=== PATIENT | female | born 1975 | race Caucasian/White ===

== ENCOUNTER 2017-08-16 10:09 | Emergency (ER) | payer OTHER ==
[~2017-08-16] VITALS: Ht 162.6 cm; Wt 63.5 kg
[~2017-08-16 10:09] MED LIST: ATIVAN1 MG PO; FLEXERIL PO; IBUPROFEN 200200 M1 PO; NAPROSYN500 MG PO; NOHOMEMEDICATIONS; VICODIN 5-5001 EACH PO
[2017-08-16 10:16] VITALS: BP 139/73
[2017-08-16] MEDS ORDERED: ANTIVERT25 MG PO (10:47)
== END 2017-08-16 10:50 | disposition home or self-care (01) ==
LOC: ER 10:09
DX: R51 Headache (principal); R42 Dizziness and giddiness

== ENCOUNTER 2017-09-13 14:02 | Emergency (ER) | payer OTHER ==
[~2017-09-13] VITALS: Ht 162.6 cm; Wt 63.5 kg
[~2017-09-13 14:02] MED LIST changes: +ANTIVERT25 MG PO
[2017-09-13] MEDS ORDERED: IBUPROFEN 600600 M1 PO ×2 (14:32→14:44)
[2017-09-13] MEDS ORDERED: FLONASE 0.05%50 MCG NASAL ×2 (14:32→14:44)
[2017-09-13 14:39] VITALS: BP 121/81
== END 2017-09-13 14:51 | disposition home or self-care (01) ==
LOC: ER 14:02
DX: J02.9 Acute pharyngitis, unspecified (principal); J06.9 Acute upper respiratory infection, unspecified; H92.03 Otalgia, bilateral

== ENCOUNTER 2018-12-31 15:44 | Emergency (ER) | payer OTHER ==
[~2018-12-31] VITALS: Ht 162.6 cm; Wt 64.4 kg
[~2018-12-31 15:44] MED LIST changes: +FLONASE 0.05%50 MCG NASAL; +IBUPROFEN 600600 M1 PO
[2018-12-31 16:35] LABS: ABSOLUTE NEUTROPHILS 10.2 thou/uL (1.4-8.2); BASOPHILS 0.3 % (0.0-2.0); EOSINOPHILS 0.9 % (0.0-3.0); HEMATOCRIT 38.7 % (37.0-47.0); LYMPHOCYTES 11.8 % (24.0-44.0); MCH 29.6 pg (26.0-34.0); MCHC 33.4 g/dL (28.0-37.0); MCV 88.6 fL (80.0-100.0); MONOCYTES 4.6 % (1.0-8.0); PLATELET COUNT 213 thou/uL (150-400); POLYS 82.4 % (36.0-66.0); RBC 4.37 mil/uL (4.20-5.00); RDW 14.1 % (10.5-14.5); WBC 12.3 thou/uL (4.0-11.0)
[2018-12-31 16:41] LABS: CALCIUM 9.3 mg/dL (8.5-10.1); CREATININE 0.8 mg/dL (0.6-1.0); POTASSIUM 3.8 mmol/L (3.5-5.1)
[2018-12-31 16:48] LABS: ALBUMIN 4.1 g/dL (3.4-5.0); TOTAL BILIRUBIN 0.2 mg/dL (<0.1-1.0); TOTAL PROTEIN 7.8 g/dL (6.4-8.2)
[2018-12-31 17:03] LABS: URINE BILIRUBIN NEGATIVE (Negative); URINE BLOOD TRACE (Negative); URINE COLOR YELLOW; URINE GLUCOSE-RANDOM* NEGATIVE (Negative); URINE KETONES NEGATIVE (Negative); URINE LEUKOCYTES-REFLEX NEGATIVE (Negative); URINE NITRITE-REFLEX POSITIVE (Negative); URINE PROTEIN (DIPSTICK) NEGATIVE (Negative); URINE UROBILINOGEN 0.2 E.U./dl (0.2-1.0)
[2018-12-31 17:04] LABS: URINE CLARITY HAZY
[2018-12-31 17:21] LABS: SQUAMOUS 4-10 Moderate /LPF (0-3)
[2018-12-31 17:22] LABS: BACTERIA-REFLEX >30 Many /HPF (None Seen); CASTS None Seen /LPF (None Seen); CRYSTALS None Seen /LPF (None Seen); URINE RBC 0-2 Rare /HPF (0-2); URINE WBC-REFLEX 0-5 Rare /HPF (0-5)
[2018-12-31] MEDS ORDERED: CEFDINIR300 MG PO (17:25)
[2018-12-31] MEDS ORDERED: REGLAN 10 MG TA10 MG PO (17:26)
[2018-12-31] MEDS ORDERED: NAPROSYN500 MG PO (17:26)
[2018-12-31 17:42] VITALS: BP 123/66
--- NOTE | 2019-01-01 19:53 | EKG ---
[address] [address] ELECTROCARDIOGRAM REPORT Name: LEANNE ALCANTARA Room #: [facility]P [facility]Latrell#: [id number] ������������������ Admission: 12/31/18 ������������������ Attend Phys: Discharge: 12/31/18 ������������������ Date of : 75 Report #: [id number] ����������������������������������������������������������������� [id number] THIS REPORT FOR: //name// [facility] ED Test Date: 2018-12-31 Test Time: 16:10:13 Pat Name: LEANNE ALCANTARA Department: Room: Gender: F Boiler/Chiller Technician: temo : 1975 Requested By: Thompson Louis Order Number: [id number] MD: Jerry Bautista Measurements Intervals Sullivan Rate: 76 P: 44 MO: 124 QRS: 66 QRSD: 94 T: 38 QT: 389 QTc: 438 Interpretive Statements Sinus rhythm Compared to ECG 07/26/2014 18:33:40 No significant changes Electronically Signed On 01-01-2019 19:53:15 CDT by Jerry Bautista [email or web address] ��������������������������������������������� <ELECTRONICALLY SIGNED> ���������������������������������������� By: Jerry Bautista MD ��������������������������������������������� 01/01/191952 09 09 Jerry Bautista MD /SPECNER
== END 2018-12-31 18:18 | disposition home or self-care (01) ==
LOC: ER 15:44
PROVIDERS: Emergency Medicine
DX: G43.809 Other migraine, not intractable, without status migrainosus (principal); N39.0 Urinary tract infection, site not specified

== ENCOUNTER 2019-07-13 15:09 | Emergency (ER) | payer OTHER ==
[~2019-07-13] VITALS: Ht 162.6 cm; Wt 68.0 kg
[~2019-07-13 15:09] MED LIST changes: +CEFDINIR300 MG PO; +REGLAN 10 MG TA10 MG PO
[2019-07-13 15:32] LABS: URINE BILIRUBIN NEGATIVE (Negative); URINE BLOOD 1+ (Negative); URINE CLARITY CLEAR; URINE COLOR YELLOW; URINE GLUCOSE-RANDOM* NEGATIVE (Negative); URINE KETONES NEGATIVE (Negative); URINE LEUKOCYTES-REFLEX NEGATIVE (Negative); URINE NITRITE-REFLEX NEGATIVE (Negative); URINE PROTEIN (DIPSTICK) NEGATIVE (Negative); URINE SPECIFIC GRAVITY >= 1.030 (1.005-1.035); URINE UROBILINOGEN 0.2 E.U./dl (0.2-1.0)
[2019-07-13 15:41] LABS: CASTS None Seen /LPF (None Seen); MUCUS 0-3 Light strn/LPF (None Seen); SQUAMOUS 0-3 Few /LPF (0-3)
[2019-07-13 15:42] LABS: BACTERIA-REFLEX 1-9 Few /HPF (None Seen); CRYSTALS None Seen /LPF (None Seen); URINE RBC 0-2 Rare /HPF (0-2); URINE WBC-REFLEX None Seen /HPF (0-5)
[2019-07-13 16:15] LABS: ABSOLUTE NEUTROPHILS 11.8 thou/uL (1.4-8.2); BASOPHILS 0.3 % (0.0-2.0); EOSINOPHILS 0.2 % (0.0-3.0); HEMATOCRIT 37.5 % (37.0-47.0); HEMOGLOBIN 12.2 gm/dL (12.0-15.0); LYMPHOCYTES 2.7 % (24.0-44.0); MCHC 32.6 g/dL (28.0-37.0); MCV 88.9 fL (80.0-100.0); MONOCYTES 4.1 % (1.0-8.0); POLYS 92.7 % (36.0-66.0); RBC 4.21 mil/uL (4.20-5.00); RDW 14.3 % (10.5-14.5); WBC 12.7 thou/uL (4.0-11.0)
[2019-07-13 16:22] LABS: PLATELET COUNT 202 thou/uL (150-400)
[2019-07-13 16:37] LABS: CALCIUM 8.6 mg/dL (8.5-10.1); CREATININE 0.9 mg/dL (0.6-1.0); POTASSIUM 3.5 mmol/L (3.5-5.1)
[2019-07-13 16:42] LABS: ALBUMIN 3.5 g/dL (3.4-5.0); TOTAL BILIRUBIN 0.5 mg/dL (<0.1-1.0); TOTAL PROTEIN 6.6 g/dL (6.4-8.2)
[2019-07-13] MEDS ORDERED: LEVSIN0.125 MG PO (18:00)
[2019-07-13] MEDS ORDERED: ONDANSETRON HCL4 M2 PO (18:00)
[2019-07-13 18:43] VITALS: BP 95/53
== END 2019-07-13 18:44 | disposition home or self-care (01) ==
LOC: ER 15:09
PROVIDERS: Physician Assistant
DX: R10.84 Generalized abdominal pain (principal); R11.2 Nausea with vomiting, unspecified; Z98.890 Other specified postprocedural states

== ENCOUNTER 2019-11-17 20:52 | Emergency (ER) | payer OTHER ==
[~2019-11-17] VITALS: Ht 162.6 cm; Wt 72.6 kg
[~2019-11-17 20:52] MED LIST changes: +LEVSIN0.125 MG PO; +ONDANSETRON HCL4 M2 PO
[2019-11-17 22:05] VITALS: BP 120/89
== END 2019-11-17 22:06 | disposition home or self-care (01) ==
LOC: ER 20:52
DX: M25.562 Pain in left knee (principal); W18.39XA Other fall on same level, initial encounter; Y93.68 Activity, volleyball (beach) (court); Y92.89 Other specified places as the place of occurrence of the external cause; Y99.8 Other external cause status

== ENCOUNTER 2020-08-05 10:08 | Emergency (ER) | payer OTHER ==
[~2020-08-05] VITALS: Ht 162.6 cm; Wt 74.8 kg
[2020-08-05 12:11] LABS: ABSOLUTE NEUTROPHILS 3.5 thou/uL (1.4-8.2); BASOPHILS 0.7 % (0.0-2.0); EOSINOPHILS 3.7 % (0.0-3.0); HEMATOCRIT 43.7 % (37.0-47.0); HEMOGLOBIN 14.2 gm/dL (12.0-15.0); LYMPHOCYTES 22.4 % (24.0-44.0); MCH 29.3 pg (26.0-34.0); MCHC 32.5 g/dL (28.0-37.0); MCV 90.2 fL (80.0-100.0); MONOCYTES 11.3 % (1.0-8.0); POLYS 61.9 % (36.0-66.0); RBC 4.84 mil/uL (4.20-5.00); RDW 13.9 % (10.5-14.5); WBC 5.6 thou/uL (4.0-11.0)
[2020-08-05 12:22] LABS: CALCIUM 8.6 mg/dL (8.5-10.1); POTASSIUM 3.9 mmol/L (3.5-5.1)
[2020-08-05 12:52] VITALS: BP 120/85
[2020-08-05 12:56] LABS: PLATELET COUNT 200 thou/uL (150-400)
== END 2020-08-05 12:53 | disposition home or self-care (01) ==
LOC: ER 10:08
PROVIDERS: Nurse Practitioner
DX: R20.2 Paresthesia of skin (principal)